=== PATIENT | male | born 1940 | race Caucasian/White ===

== ENCOUNTER 2017-03-27 14:35 | Emergency (ER) | payer OTHER ==
[~2017-03-27] VITALS: Ht 177.8 cm; Wt 151.9 kg
[~2017-03-27 14:35] MED LIST: ALBUTEROL2.5 MG/3 M INH; ALENDRONATE SOD70 MG PO; AMLODIPINE BESY10 MG PO; ANTIFUNGAL CREA14 GM TOP; AQUA CARE71 GM TOP; ASCORBIC ACID500 M3 PO; ASPIRIN EC325 MG PO; AZATHIOPRINE50 MG PO; AZITHROMYCIN250 MG PO; BACTRIM DS TAB1 EACH PO; BENZONATATE200 MG PO; BIOTENE ORALB44.3 ML MM; CALCIUM + VITA1 EAC1 PO; CEFUROXIME500 MG PO; CELLCEPT500 MG PO; CLINDAMYCIN HC300 MG PO; CLONAZEPAM0.5 MG PO; CYCLOBENZAPRINE10 MG PO; DENTA 5000 PLUS51 GM DT; DESENEX TOP; DIVALPROEX SOD250 M1 PO; EVZIO0.4 MG/0.4 IJ; FERRONATE325 MG PO; FUROSEMIDE40 MG PO; FUROSEMIDE80 MG PO; GLUCOPHAGE XR500 MG PO; GLUCOPHAGE500 MG PO; HALOPERIDOL0.5 MG PO; HYDRALAZINE HCL10 MG PO; IRON325 M1 PO; JENTADUETO 2.51 EAC1 PO; K-TAB10 MEQ PO; LANTUS100 UNITS/ SUB-Q; LASIX80 MG PO; LOPRESSOR100 MG PO; LOSARTAN POTAS100 MG PO; LUBRICANT EYE1 EACH OP; LUBRICANT EYE1 EACH OU; MAGNESIUM OXID420 MG PO; MAGNESIUM400 M1 PO; METFORMIN HCL500 M1 PO; METOPROLOL TART50 MG PO; MULTI-VITAMIN-1 EACH PO; NEURONTIN300 MG PO; NITROGLYCERIN0.4 MG SL; NORVASC10 MG PO; NOVOLOG100 UNIT/1 SUB-Q; ONGLYZA5 MG PO; OXYCODONE HCL5 MG PO; POTASSIUM CHLO10 MEQ PO; PREDNISONE20 MG PO; PREDNISONE5 MG PO; PROAIR RESPICL90 MCG IH; PROBIOTIC1 EAC1 PO; PYRIDOSTIGMINE60 MG PO; REQUIP0.25 MG PO; REQUIP4 MG PO; RESTASIS1 DROP OD; SERTRALINE HCL100 MG PO; SIMVASTATIN20 MG PO; SINUS RINSE RE1 EACH NAS; SPIRIVA RESPIMAT4 G1 IH; SYMBICORT 16010.2 GM INH; TRADJENTA5 MG PO; TRAZODONE HCL100 MG PO; VITAMIN C250 MG PO; VITAMIN C500 M1 PO; VITAMIN D1000 UNI1 PO; [UNRECOGNIZED DRUG - OTHER] PO
[2017-03-27] MEDS ORDERED: ANUSOL-HC25 MG PR (16:32)
--- NOTE | 2017-03-28 15:53 | EKG ---
[facility] [address] [place] [address] Signed Sinus rhythm with premature atrial complexes Nonspecific ST abnormality Abnormal ECG When compared with ECG of 02-APR-2016 11:38, premature atrial complexes are now present T wave inversion now evident in Inferior leads Nonspecific T wave abnormality no longer evident in Lateral leads Confirmed by THAO LOCKE MD ([id number]) on 03/28/2017 3:53:11 PM Electronically Signed By: THAO LOCKE MD 03/28/17 1553 PATIENT NAME: PORTIA READ Nataliya Electrocardiogram DATE OF : 42 PHYSICIAN: THAO LOCKE MD REPORT #: [id number] REPORT IS CONFIDENTIAL AND NOT TO BE RELEASED WITHOUT AUTHORIZATION
== END 2017-03-27 16:44 | disposition home or self-care (01) ==
LOC: ED 14:35
DX: R06.02 Shortness of breath (principal); K64.8 Other hemorrhoids; E11.9 Type 2 diabetes mellitus without complications; I10 Essential (primary) hypertension; E78.00 Pure hypercholesterolemia, unspecified; Z88.0 Allergy status to penicillin; Z88.7 Allergy status to serum and vaccine; Z88.5 Allergy status to narcotic agent; Z88.8 Allergy status to other drugs, medicaments and biological substances; Z79.899 Other long term (current) drug therapy; Z79.4 Long term (current) use of insulin
CPT/HCPCS: 71045; 80053; 83880; 84484; 85025; 87502; 93005; 93010; 96374; 99283

== ENCOUNTER 2017-04-14 16:34 | Emergency (ER) | payer OTHER, MEDICARE ==
[~2017-04-14] VITALS: Ht 177.8 cm; Wt 151.9 kg
[~2017-04-14 16:34] MED LIST changes: +ANUSOL-HC25 MG PR
[2017-04-14] MEDS ORDERED: SINEMET CR 50-1 EACH PO (17:14)
[2017-04-14] MEDS ORDERED: DEPAKOTE ER250 MG PO (17:15)
[2017-04-14] MEDS ORDERED: FLONASE ALLERG9.9 ML NAS (18:59)
== END 2017-04-14 20:10 | disposition home or self-care (01) ==
LOC: ED 16:34
DX: J32.9 Chronic sinusitis, unspecified (principal); G47.00 Insomnia, unspecified; K14.6 Glossodynia; E11.9 Type 2 diabetes mellitus without complications; E78.00 Pure hypercholesterolemia, unspecified; J44.9 Chronic obstructive pulmonary disease, unspecified; I10 Essential (primary) hypertension; Z88.0 Allergy status to penicillin; Z88.7 Allergy status to serum and vaccine; Z88.5 Allergy status to narcotic agent; Z88.8 Allergy status to other drugs, medicaments and biological substances; Z79.4 Long term (current) use of insulin; Z79.899 Other long term (current) drug therapy; Z99.81 Dependence on supplemental oxygen
CPT/HCPCS: 70450; 70486; 99284

== ENCOUNTER 2019-04-19 11:13 | Emergency (ER) | payer MEDICARE, OTHER ==
[~2019-04-19] VITALS: Ht 177.8 cm; Wt 140.2 kg
[~2019-04-19 11:13] MED LIST changes: +CALCIUM ACETAT667 MG PO; +DEPAKOTE ER250 MG PO; +EPIDIOLEX100 MG/1 M PO; +FLONASE ALLERG9.9 ML NAS; +LOPERAMIDE2 M1 PO; +MUCINEX600 MG PO; +SINEMET CR 50-1 EACH PO
--- OUTSIDE RECORDS SUMMARY | 2019-04-19 11:18 | XMS ---
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 E.D. VISIT COUNT (12 MO.) 2 [facility] TOTAL 2 NOTE: Visits indicate total known visits. 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
[2019-04-19] MEDS ORDERED: ZITHROMAX250 MG (15:25)
[2019-04-19] MEDS ORDERED: VENTOLIN HFA18 GM INH ×2 (15:26→15:28)
[2019-04-19] MEDS ORDERED: PREDNISONE20 MG PO (15:28)
[2019-04-19] MEDS ORDERED: ZITHROMAX250 MG PO (15:28)
--- NOTE | 2019-04-19 18:08 | EKG ---
[facility] [address] [place], [place] [address] Signed Sinus bradycardia Nonspecific ST abnormality Abnormal ECG When compared with ECG of 25-NOV-2018 12:21, No significant change was found Confirmed by JESSE GUO DO ([id number]) on 04/19/2019 6:08:15 PM Electronically Signed By: JESSE GUO DO 04/19/19 1808 PATIENT NAME: PORTIA READ Nataliya Electrocardiogram DATE OF : 42 PHYSICIAN: JESSE GUO DO REPORT #: [id number] REPORT IS CONFIDENTIAL AND NOT TO BE RELEASED WITHOUT AUTHORIZATION
== END 2019-04-19 15:46 | disposition home or self-care (01) ==
LOC: ED 11:13
DX: J40 Bronchitis, not specified as acute or chronic (principal); E11.9 Type 2 diabetes mellitus without complications; I10 Essential (primary) hypertension; Z87.891 Personal history of nicotine dependence; Z88.0 Allergy status to penicillin; Z88.8 Allergy status to other drugs, medicaments and biological substances; Z88.7 Allergy status to serum and vaccine; Z88.5 Allergy status to narcotic agent; Z79.899 Other long term (current) drug therapy; Z79.4 Long term (current) use of insulin
CPT/HCPCS: 71045; 80053; 83605; 83880; 84484; 85025; 93005; 93010; 94640; 99284-25; J1100

== ENCOUNTER 2019-12-09 11:07 | Emergency (ER) | payer MEDICARE ==
[~2019-12-09] VITALS: Ht 177.8 cm; Wt 147.4 kg
[~2019-12-09 11:07] MED LIST changes: +VENTOLIN HFA18 GM INH; +ZITHROMAX250 MG; +ZITHROMAX250 MG PO
--- OUTSIDE RECORDS SUMMARY | 2019-12-09 11:10 | XMS ---
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 Carmen VISIT COUNT (12 MO.) 2 [facility] TOTAL 2 NOTE: Visits indicate total known visits. 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
[2019-12-09] MEDS ORDERED: TIROSINT50 MCG PO (11:55)
[2019-12-09] MEDS ORDERED: OMEPRAZOLE20 MG PO (11:56)
[2019-12-09] MEDS ORDERED: OXYBUTYNIN CHLO15 MG PO (12:04)
[2019-12-09] MEDS ORDERED: PSYLLIUM HUSK1 GM MISC (12:05)
[2019-12-09] MEDS ORDERED: TAMSULOSIN HCL0.4 MG PO (12:07)
[2019-12-09] MEDS ORDERED: KEFLEX500 MG PO (14:30)
--- NOTE | 2019-12-10 09:16 | EKG ---
[facility] [address] [place], [place] [address] Signed Sinus rhythm Nonspecific ST abnormality Abnormal ECG When compared with ECG of 19-APR-2019 12:27, No significant change was found Confirmed by THAO LOCKE MD ([id number]) on 12/10/2019 9:15:39 AM Electronically Signed By: THAO LOCKE MD 12/10/19 0916 PATIENT NAME: PORTIA READ Electrocardiogram DATE OF : 42 PHYSICIAN: THAO LOCKE MD REPORT #: [id number] REPORT IS CONFIDENTIAL AND NOT TO BE RELEASED WITHOUT AUTHORIZATION
== END 2019-12-09 15:15 | disposition home or self-care (01) ==
LOC: ED 11:07
DX: L03.116 Cellulitis of left lower limb (principal); E11.9 Type 2 diabetes mellitus without complications; J44.9 Chronic obstructive pulmonary disease, unspecified; I10 Essential (primary) hypertension; Z99.81 Dependence on supplemental oxygen; Z87.891 Personal history of nicotine dependence; Z88.0 Allergy status to penicillin; Z88.8 Allergy status to other drugs, medicaments and biological substances; Z88.5 Allergy status to narcotic agent; Z88.7 Allergy status to serum and vaccine; Z79.899 Other long term (current) drug therapy; Z79.4 Long term (current) use of insulin
CPT/HCPCS: 71045; 80053; 81001; 83880; 84484; 85025; 93005; 93010; 96365; 96375; 99284-25; J0696; J1940; J2270

== ENCOUNTER 2020-03-25 15:49 | Emergency (ER) | payer MEDICARE ==
[~2020-03-25] VITALS: Ht 177.8 cm; Wt 137.4 kg
[~2020-03-25 15:49] MED LIST changes: +KEFLEX500 MG PO; +OMEPRAZOLE20 MG PO; +OXYBUTYNIN CHLO15 MG PO; +PSYLLIUM HUSK1 GM MISC; +TAMSULOSIN HCL0.4 MG PO; +TIROSINT50 MCG PO
--- OUTSIDE RECORDS SUMMARY | 2020-03-25 15:52 | XMS ---
PreManage Notification: PORTIA READ Security Web Press Roll Tender Events No recent Security Events currently on file CRITERIA MET - Group Notification CARE PROVIDERS Rachana Nurse Practitioner: Family 10/13/2018-Current Kady PHONE: [phone] Maddy has no Care Guidelines for this patient. Care History Medical/Surgical 12/10/2019 [facility] \T\middot;\T\nbsp; PATIENT IS A -RECEIVES SERVICES THROUGH [facility] IN [place]. \T\middot;\T\nbsp; Location: [address], [place] [address]- E.D. VISIT COUNT (12 MO.) 3 [facility] TOTAL 3 NOTE: Visits indicate total known visits. ED/UCC VISIT TRACKING (12 MO.) 03/25/2020 15:50 [facility] TYPE: Emergency COMPLAINT: - SORE ON R ARM, BUMP ON BACK 12/09/2019 11:07 [facility] TYPE: Emergency COMPLAINT: - BILAT LEG PAIN/SWELLING DIAGNOSES: - Other group home (current) drug therapy - Allergy status to narcotic agent - Chronic obstructive pulmonary disease, unspecified - Cellulitis of left lower limb - Type 2 diabetes mellitus without complications - Dependence on supplemental oxygen - Allergy status to other drugs, medicaments and biological substances - Essential (primary) hypertension - Personal history of nicotine dependence - 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
[2020-03-25] MEDS ORDERED: BACTRIM DS TAB1 EACH PO (17:16)
== END 2020-03-25 17:40 | disposition home or self-care (01) ==
LOC: ED 15:49
DX: L02.413 Cutaneous abscess of right upper limb (principal); L02.212 Cutaneous abscess of back [any part, except buttock and flank]; E11.9 Type 2 diabetes mellitus without complications; J44.9 Chronic obstructive pulmonary disease, unspecified; I10 Essential (primary) hypertension; E78.00 Pure hypercholesterolemia, unspecified; Z87.891 Personal history of nicotine dependence; Z88.0 Allergy status to penicillin; Z88.8 Allergy status to other drugs, medicaments and biological substances; Z88.5 Allergy status to narcotic agent; Z88.7 Allergy status to serum and vaccine; Z79.899 Other long term (current) drug therapy; Z79.52 Long term (current) use of systemic steroids; Z79.4 Long term (current) use of insulin
CPT/HCPCS: 10061; 99282-25

== ENCOUNTER 2020-07-08 11:17 | Emergency (ER) | payer MEDICARE ==
[~2020-07-08] VITALS: Ht 177.8 cm; Wt 138.3 kg
--- OUTSIDE RECORDS SUMMARY | 2020-07-08 11:24 | XMS ---
PreManage Notification: PORTIA READ Security Check Examiner Events No recent Security Events currently on file CRITERIA MET - Group Notification CARE PROVIDERS ANGELINE Nurse Practitioner: Family 10/13/2018-Current [facility] PHONE: [phone] GUNJAN Araiza Technician Automatic: Clinical 03/28/2020-Current [facility] \[facility]\ [facility] PHONE: [phone] Maddy has no Care Guidelines for this patient. Care History Medical/Surgical 12/10/2019 [facility] \T\middot;\T\nbsp; PATIENT IS A -RECEIVES SERVICES THROUGH [facility] IN [place]. \T\middot;\T\nbsp; Location: [address], [place] [address]- E.D. VISIT COUNT (12 MO.) 3 [facility] TOTAL 3 NOTE: Visits indicate total known visits. ED/UCC VISIT TRACKING (12 MO.) 07/08/2020 11:19 [facility] TYPE: Emergency COMPLAINT: - UPPPER R TORSO PAIN 03/25/2020 15:50 [facility] TYPE: Emergency COMPLAINT: - SKIN PROBLEM DIAGNOSES: - Pure hypercholesterolemia, unspecified - Allergy status to penicillin - snf (current) use of systemic steroids - Cutaneous abscess of back [any part, except buttock] - Type 2 diabetes mellitus without complications - Personal history of nicotine dependence - Chronic obstructive pulmonary disease, unspecified - Essential (primary) hypertension - snf (current) use of insulin - Allergy status to other drugs, medicaments and biological substances - Allergy status to narcotic agent - Allergy status to serum and vaccine - Other longterm (current) drug therapy - Cutaneous abscess of right upper limb 12/09/2019 11:07 [facility] [place] TYPE: Emergency COMPLAINT: - BILAT LEG PAIN/SWELLING DIAGNOSES: - 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 - Allergy status to narcotic agent - Chronic obstructive pulmonary disease, unspecified - Cellulitis of left lower limb - Type 2 diabetes mellitus without complications - Allergy status to narcotic agent - Dependence on supplemental oxygen - Allergy status to serum and vaccine - Allergy status to other drugs, medicaments and biological substances - Allergy status to other drugs, medicaments and biological substances - Essential (primary) hypertension - Personal history of nicotine dependence - snf (current) use of insulin - Localized edema - Allergy status to penicillin - Allergy status to serum and vaccine INPATIENT VISIT TRACKING (12 MO.) No inpatient visits to display in this time frame [id number]
[2020-07-08] MEDS ORDERED: FINASTERIDE5 MG PO (11:37)
[2020-07-08] MEDS ORDERED: MYRBETRIQ25 MG PO (11:38)
[2020-07-08] MEDS ORDERED: REFRESH TEARS15 ML (11:39)
[2020-07-08] MEDS ORDERED: SPIRONOLACTONE25 MG PO (11:40)
[2020-07-08] MEDS ORDERED: LOPERAMIDE2 M1 PO (11:41)
[2020-07-08] MEDS ORDERED: NARCAN4 MG NS (11:42)
[2020-07-08] MEDS ORDERED: OXYCODONE HCL5 MG PO (17:16)
--- NOTE | 2020-07-10 13:13 | EKG ---
[facility] [address] [place] [address] Signed Sinus bradycardia with 1st degree AV block with premature supraventricular complexes Left axis deviation Left bundle branch block Abnormal ECG When compared with ECG of 09-DEC-2019 11:28, premature supraventricular complexes are now present CT interval has increased Left bundle branch block is now present Confirmed by THAO LOCKE MD ([id number]) on 07/10/2020 1:13:47 PM Electronically Signed By: THAO LOCKE MD 07/10/20 1313 PATIENT NAME: PORTIA READ Nataliya Electrocardiogram DATE OF : 42 PHYSICIAN: THAO LOCKE MD REPORT #: [id number] REPORT IS CONFIDENTIAL AND NOT TO BE RELEASED WITHOUT AUTHORIZATION
== END 2020-07-08 17:57 | disposition home or self-care (01) ==
LOC: ED 11:17
DX: R07.89 Other chest pain (principal); E11.9 Type 2 diabetes mellitus without complications; J44.9 Chronic obstructive pulmonary disease, unspecified; I10 Essential (primary) hypertension; E78.00 Pure hypercholesterolemia, unspecified; Z87.891 Personal history of nicotine dependence; Z88.0 Allergy status to penicillin; Z88.8 Allergy status to other drugs, medicaments and biological substances; Z88.5 Allergy status to narcotic agent; Z88.7 Allergy status to serum and vaccine; Z79.899 Other long term (current) drug therapy; Z79.52 Long term (current) use of systemic steroids; Z79.4 Long term (current) use of insulin
CPT/HCPCS: 71046; 71250; 80053; 83690; 83735; 84484; 85025; 93005; 93010; 96374; 96375; 99285-25; J2270; J2405

== ENCOUNTER 2020-12-01 11:17 | Emergency (ER) | payer MEDICARE, OTHER ==
[~2020-12-01] VITALS: Ht 177.8 cm; Wt 135.6 kg
[~2020-12-01 11:17] MED LIST changes: +FINASTERIDE5 MG PO; +MYRBETRIQ25 MG PO; +NARCAN4 MG NS; +REFRESH TEARS15 ML; +SPIRONOLACTONE25 MG PO
--- OUTSIDE RECORDS SUMMARY | 2020-12-01 11:24 | XMS ---
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 Care History Medical/Surgical 12/10/2019 [facility] \T\middot;\T\nbsp; PATIENT IS A -RECEIVES SERVICES THROUGH [facility] [place]. \T\middot;\T\nbsp; Location: [address], [place] [address]- E.D. VISIT COUNT (12 MO.) 4 [facility] TOTAL 4 NOTE: Visits indicate total known visits. 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 - Allergy status to penicillin - Allergy status to narcotic agent - Type 2 diabetes mellitus without complications - Pure hypercholesterolemia, unspecified - Chronic obstructive pulmonary disease, unspecified - Other chest pain - Essential (primary) hypertension - Allergy status to serum and vaccine - Allergy status to other drugs, medicaments and biological substances - Personal history of nicotine dependence - 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 - jail (current) use of systemic steroids 03/25/2020 15:50 [facility] [place] TYPE: Emergency COMPLAINT: - SKIN PROBLEM DIAGNOSES: - Pure hypercholesterolemia, unspecified - Allergy status to penicillin - jail (current) use of systemic steroids - Cutaneous abscess of back [any part, except buttock] - Type 2 diabetes mellitus without complications - Personal history of nicotine dependence - Chronic obstructive pulmonary disease, unspecified - Essential (primary) hypertension - 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 - Allergy status to other drugs, medicaments and biological substances - Allergy status to narcotic agent - Allergy status to serum and vaccine - Other prison (current) drug therapy - Cutaneous abscess of right upper limb 12/09/2019 11:07 [facility] TYPE: Emergency COMPLAINT: - BILAT LEG PAIN/SWELLING DIAGNOSES: - Other prison (current) drug therapy - Allergy status to [...] - Personal history of nicotine dependence - 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
[2020-12-01] MEDS ORDERED: ACETAMINOPHEN500 MG PO (11:45)
[2020-12-01] MEDS ORDERED: PREDNISONE20 MG PO (11:59)
[2020-12-01] MEDS ORDERED: MUCUS ER600 MG PO (12:13)
[2020-12-01] MEDS ORDERED: LEVOFLOXACIN500 MG PO (14:17)
--- NOTE | 2020-12-01 18:43 | EKG ---
[facility] [address] [place] [address] Signed Atrial fibrillation Left bundle branch block Abnormal ECG When compared with ECG of 08-JUL-2020 13:26, Atrial fibrillation has replaced Sinus rhythm QRS axis shifted right T wave amplitude has decreased in Inferior leads T wave amplitude has increased in Anterior leads Confirmed by VIVIAN MONZON MD ([id number]) on 12/01/2020 6:43:02 PM Electronically Signed By: VIVIAN MONZON MD 12/01/20 1843 PATIENT NAME: PORTIA READ Nataliya Electrocardiogram DATE OF : 42 PHYSICIAN: VIVIAN MONZON MD REPORT #: [id number] REPORT IS CONFIDENTIAL AND NOT TO BE RELEASED WITHOUT AUTHORIZATION
== END 2020-12-01 14:30 | disposition home or self-care (01) ==
LOC: ED 11:17
DX: U07.1 COVID-19 (principal); J12.82 Pneumonia due to coronavirus disease 2019; E11.9 Type 2 diabetes mellitus without complications; J44.9 Chronic obstructive pulmonary disease, unspecified; I10 Essential (primary) hypertension; R00.1 Bradycardia, unspecified; E78.00 Pure hypercholesterolemia, unspecified; Z87.891 Personal history of nicotine dependence; Z88.0 Allergy status to penicillin; Z88.7 Allergy status to serum and vaccine; Z88.5 Allergy status to narcotic agent; Z88.8 Allergy status to other drugs, medicaments and biological substances; Z79.899 Other long term (current) drug therapy; Z79.52 Long term (current) use of systemic steroids; Z79.4 Long term (current) use of insulin
CPT/HCPCS: 71045; 80053; 83605; 85025; 93005; 93010; 99285-25; C9803; U0003